=== PATIENT | male | born 1990 | race Caucasian/White ===

== ENCOUNTER 2024-05-25 19:33 | Emergency (ER) | payer BC ==
[2024-05-25] MEDS: Penicillin V Potassium 500 MG Tab PO STA (21:36)
== END 2024-05-25 21:39 | disposition home or self-care (01) ==
LOC: MW.ED 19:33
DX: K04.7 Periapical abscess without sinus (principal); K03.81 Cracked tooth; Z75.8 Other problems related to medical facilities and other health care
CPT/HCPCS: 99282; A9270; 99283